=== PATIENT | female | born 1960 ===

== ENCOUNTER 2017-05-03 11:57 | Emergency (ER) | payer OTHER ==
[2017-05-03 12:02] VITALS: BMI 25.0
[2017-05-03 12:03] VITALS: RESP 18
--- NOTE | 2017-05-03 12:19 | C.PDOC ---
History Of Present Illness 56 y/o female with hx asthma c/o diffuse chest pain with fever to 102.3 yesterday, cough with copious white sputum, sore throat and body pain. pt returned yesterday to [facility] after a one month trip to [facility] at 6 am. pt reorts symptoms began enroute from [facility] to [facility], did not feel unwell prior to that. pt last took tylenol at 630 am today. denies hemoptysis, occasional sob, no abdominal pain, nausea, vomiting or diarrhea. no leg sánchez or swelling. Time Seen by Provider: 05/03/17 12:08 Chief Complaint (Nursing): Cough, Cold, Congestion History Per: Patient, Wirer ([facility] # [id number]) History/Exam Limitations: language barrier Onset/Duration Of Symptoms: Days (1) Current Symptoms Are (Timing): Worse Location Of Pain: Throat, Diffuse Myalgias Associated Symptoms: Fever, Chills, Sore Throat, Cough, Sputum, Myalgias. denies: Vomiting, Diarrhea Ear Symptoms: Bilateral: None Recent travel outside of the [place]: Yes (returned yesterday from [facility]) Additional History Per: Family Past Medical History Reviewed: Historical Data, Nursing Documentation, Vital Signs Vital Signs: Last Vital Signs Temp 98.5 F 05/03/17 14:52 Pulse 93 H 05/03/17 14:52 Resp 18 05/03/17 14:52 BP 116/72 05/03/17 14:52 Pulse Ox 96 05/03/17 15:23 - Medical History PMH: Asthma, Bronchitis, COPD Denies: Chronic Kidney Disease Family History: States: Unknown Family Hx - Social History Hx Tobacco Use: No Hx Alcohol Use: No Hx Substance Use: No - Immunization History Hx Tetanus Toxoid Vaccination: No Hx Influenza Vaccination: No Hx Pneumococcal Vaccination: No Review Of Systems Constitutional: Positive for: Fever, Chills ENT: Positive for: Nose Discharge, Throat Pain. Negative for: Ear Pain, Nose Pain, Throat Swelling Cardiovascular: Negative for: Palpitations Respiratory: Positive for: Cough, Shortness of Breath, Pleuritic Pain, Sputum Gastrointestinal: Negative for: Nausea, Vomiting, Abdominal Pain Genitourinary: Negative for: Dysuria, Frequency Skin: Negative for: Rash Neurological: Negative for: Weakness, Numbness Physical Exam - Physical Exam Appears: Non-toxic, Other (appears uncomfortable) Skin: Normal Color, Warm, Dry Head: Atraumatic, Normacephalic Ear(s): Bilateral: TM Obscured By Wax Nose: Normal Oral Mucosa: Dry Tongue: Other (dry) Lips: Other (chapped) Throat: Erythema, No Exudate Neck: Normal ROM, Supple Chest: Symmetrical, No Deformity, No Tenderness Cardiovascular: Rhythm Regular, No Murmur Respiratory: Decreased Breath Sounds, No Accessory Muscle Use, No Rales, No Rhonchi, No Wheezing Gastrointestinal/Abdominal: Soft, No Tenderness Extremity: No Pedal Edema, No Calf Tenderness, No Swelling Pulses: Left Dorsalis Pedis: Normal, Right Dorsalis Pedis: Normal Neurological/Psych: Oriented x3, Normal Speech, Normal Cognition ED Course And Treatment - Laboratory Results Result Diagrams: 05/03/17 13:13 05/03/17 12:46 O2 Sat by Pulse Oximetry: 96 Medical Decision Making Medical Decision Makin56 y/o female with asthma c/o fever, myalgias, sore throat and cough with white sputum that started on flight form [place] to [facility]. will get bc, labs, ekg. cxr, rapid strep, influenza, give iv fluids and re-eval. LUNGS: The interstitial markings are slightly increased and coarsened with a few scattered peribronchial cuffing changes ; rule out sequela of reactive/ inflammatory airway disease or viral illness. No focal consolidation. PLEURA: No significant pleural effusion identified. No pneumothorax apparent. CARDIOVASCULAR: Heart is upper limits of normal in size. Minimal calcified plaque the aortic knob. OSSEOUS STRUCTURES: Minor multilevel degenerative spondylosis of the thoracic spine. VISUALIZED UPPER ABDOMEN: Normal. OTHER FINDINGS: None. IMPRESSION: Slightly increased coarse interstitial markings; rule out sequela of reactive and or inflammatory airway disease. cxr: 233 pm pt reports myalgias and chest pain resolved. will tx with antibiotics due to asthma history; first dose of zithromax to be given now. Patient shows no signs of urinary symptoms, will not treat for UTI. Disposition Counseled Patient/Family Regarding: Studies Performed, Diagnosis, Need For Followup, Rx Given - Disposition Referrals: [facility] [Outside] [facility] at [facility] [Outside] Clinic,Med Surg [Primary Care Provider] - Disposition: HOME/ ROUTINE Disposition Time: 15:18 Condition: IMPROVED Additional Instructions: Follow up in medical clinic in 1-2 days. Take antibiotic as prescribed. Take Tylenol or Motrin for body aches and pain, fever. Stay well hydrated. Return to ER for any worsening symptoms. Prescriptions: Albuterol HFA [Ventolin HFA 90 mcg/actuation (8 g)] 2 puff IH Q6 #1 inhaler Azithromycin [Zithromax] 250 mg PO DAILY #4 tab Instructions: Upper Respiratory Infection (ED) Forms: [facility] (Mongolian), General Discharge Instructions - Clinical Impression Clinical Impression: Upper respiratory infection, Bronchitis
[2017-05-03] MEDS ORDERED: Sodium Chloride 0.9% 1,000 ML IV ONE (12:46)
[2017-05-03] MEDS ORDERED: Sodium Chloride 0.9% 1,000 ML ONE (12:52)
[2017-05-03 13:06] LABS: BASO % 0.6 % (0.0-2.0); EOS # 0.1 K/uL (0.0-0.7); EOS % 1.9 % (0.0-4.0); HEMATOCRIT 35.1 % (34.0-47.0); LYMPH # 1.6 K/uL (1.0-4.3); LYMPH % 40.6 % (20.0-40.0); MEAN CORPUSCULAR HEMOGLOBIN 18.2 pg (27.0-31.0); MEAN CORPUSCULAR HGB CONC 30.9 g/dL (33.0-37.0); MEAN PLATELET VOLUME 9.1 fL (7.2-11.7); MONO # 0.5 K/uL (0.0-0.8); MONO % 12.7 % (0.0-10.0); NRBC % 0.1 % (0.0-2.0); RED CELL DISTRIBUTION WIDTH 17.6 % (11.5-14.5); WHITE BLOOD COUNT 4.1 K/uL (4.8-10.8)
--- NOTE | 2017-05-03 13:08 | RAD ---
HISTORY: Pneumonia COMPARISON: No prior. TECHNIQUE: Chest PA and lateral FINDINGS: LUNGS: The interstitial markings are slightly increased and coarsened with a few scattered peribronchial cuffing changes ; rule out sequela of reactive/ inflammatory airway disease or viral illness. No focal consolidation. PLEURA: No significant pleural effusion identified. No pneumothorax apparent. CARDIOVASCULAR: Heart is upper limits of normal in size. Minimal calcified plaque the aortic knob. OSSEOUS STRUCTURES: Minor multilevel degenerative spondylosis of the thoracic spine. VISUALIZED UPPER ABDOMEN: Normal. OTHER FINDINGS: None. IMPRESSION: Slightly increased coarse interstitial markings; rule out sequela of reactive and or inflammatory airway disease.
[2017-05-03 13:16] LABS: CHLORIDE 102 mmol/L (98-107); POTASSIUM 4.1 mmol/L (3.6-5.2); SODIUM 143 mmol/L (132-148)
[2017-05-03 13:19] LABS: ALB/GLOB RATIO 1.3 (1.0-2.1); ALKALINE PHOSPHATASE 98 U/L (38-126); ALT/SGPT 36 U/L (9-52); AST/SGOT 37 U/L (14-36); BILIRUBIN,TOTAL 0.4 mg/dL (0.2-1.3); BLOOD UREA NITROGEN 15 mg/dL (7-17); CALCIUM 8.8 mg/dl (8.6-10.4); CARBON DIOXIDE 26 mmol/L (22-30); GFR AFRICAN-AMERICAN > 60; GLUCOSE,RANDOM 105 mg/dL (65-105); TOTAL PROTEIN 7.4 g/dL (6.3-8.3)
[2017-05-03 13:29] LABS: RBC URINE 12 /hpf (0-3); URINE BACTERIA RARE (<OCC); URINE BILIRUBIN NEGATIVE (NEGATIVE); URINE BLOOD 2+ (NEGATIVE); URINE COLOR Yellow (YELLOW); URINE GLUCOSE (UA) NORMAL (Normal); URINE KETONE NEGATIVE (NEGATIVE); URINE LEUKOCYTE ESTERASE 2+ Leu/uL (Negative); URINE PROTEIN NEGATIVE (NEGATIVE); URINE UROBILINOGEN NORMAL mg/dL (0.2-1.0); WBC URINE 5 /hpf (0-5)
[2017-05-03 14:53] VITALS: BP 116/72; PULSE 93; TEMP 98.5
[2017-05-03 15:22] VITALS: O2SAT 96
--- NOTE | 2017-05-05 18:23 | CARD ---
APPROVED REPORT EKG Measurement Heart [id number] <Conclusion> Normal sinus rhythm Cannot rule out Anterior infarct, age undetermined Abnormal ECG
== END 2017-05-03 15:29 | disposition home or self-care (01) ==
LOC: C.ER 11:57 → SUPCPDRO 11:57 → C.ER 15:29
DX: J06.9 Acute upper respiratory infection, unspecified (principal); J40 Bronchitis, not specified as acute or chronic
CPT/HCPCS: 71020; 80053; 81001; 85025; 87040; 87070; 87430; 87804; 93005; 96360; 99285; J7040

== ENCOUNTER 2017-05-09 14:39 | Emergency (ER) | payer OTHER ==
[2017-05-09 14:39] VITALS: BMI 25.0
[2017-05-09 14:55] VITALS: RESP 20
[2017-05-09] MEDS ORDERED: Belladonna-Phenobarbital PO STA (15:57)
[2017-05-09] MEDS ORDERED: Iohexol 240 (50 ml) PO STA (15:57)
[2017-05-09] MEDS ORDERED: Sodium Chloride 0.9% 1,000 ML IV ONE (15:57)
[2017-05-09] MEDS ORDERED: Belladonna-Phenobarbital ONE (16:19)
[2017-05-09] MEDS ORDERED: Sodium Chloride 0.9% 1,000 ML ONE (16:20)
[2017-05-09 16:24] LABS: BASO % 0.1 % (0.0-2.0); EOS % 12.3 % (0.0-4.0); HEMATOCRIT 33.5 % (34.0-47.0); LYMPH # 3.1 K/uL (1.0-4.3); LYMPH % 39.3 % (20.0-40.0); MEAN CORPUSCULAR HEMOGLOBIN 18.6 pg (27.0-31.0); MEAN CORPUSCULAR HGB CONC 31.5 g/dL (33.0-37.0); MONO # 0.3 K/uL (0.0-0.8); MONO % 4.3 % (0.0-10.0); NRBC % 0.2 % (0.0-2.0); RED CELL DISTRIBUTION WIDTH 17.3 % (11.5-14.5); WHITE BLOOD COUNT 7.8 K/uL (4.8-10.8)
[2017-05-09 16:32] LABS: RBC URINE 11 /hpf (0-3); URINE BACTERIA RARE (<OCC); URINE BILIRUBIN NEGATIVE (NEGATIVE); URINE BLOOD 1+ (NEGATIVE); URINE COLOR Yellow (YELLOW); URINE GLUCOSE (UA) NORMAL (Normal); URINE KETONE NEGATIVE (NEGATIVE); URINE LEUKOCYTE ESTERASE 2+ Leu/uL (Negative); URINE PROTEIN NEGATIVE (NEGATIVE); URINE UROBILINOGEN NORMAL mg/dL (0.2-1.0); WBC URINE 19 /hpf (0-5)
[2017-05-09 16:35] LABS: CHLORIDE 107 mmol/L (98-107); SODIUM 141 mmol/L (132-148)
[2017-05-09 16:36] LABS: POTASSIUM 3.9 mmol/L (3.6-5.2)
[2017-05-09 16:38] LABS: ALB/GLOB RATIO 1.2 (1.0-2.1); ALKALINE PHOSPHATASE 89 U/L (38-126); ALT/SGPT 32 U/L (9-52); AST/SGOT 26 U/L (14-36); BILIRUBIN,TOTAL 0.5 mg/dL (0.2-1.3); BLOOD UREA NITROGEN 16 mg/dL (7-17); CALCIUM 9.2 mg/dl (8.6-10.4); CARBON DIOXIDE 24 mmol/L (22-30); GFR AFRICAN-AMERICAN > 60; GLUCOSE,RANDOM 101 mg/dL (65-105); TOTAL PROTEIN 7.3 g/dL (6.3-8.3)
[2017-05-09] MEDS ORDERED: Iohexol 240 (50 ml) ONE (16:54)
--- NOTE | 2017-05-09 17:06 | RAD ---
PROCEDURE: CHEST RADIOGRAPH, 1 VIEW HISTORY: Wheezing COMPARISON: 05/03/2017. FINDINGS: LUNGS: Clear. PLEURA: No pneumothorax or pleural fluid seen. CARDIOVASCULAR: Normal. OSSEOUS STRUCTURES: No significant abnormalities. VISUALIZED UPPER ABDOMEN: Normal. OTHER FINDINGS: None. IMPRESSION: No active disease. No acute/significant interval changes.
[2017-05-09] MEDS ORDERED: Iodixanol 320 MG/ML 100 ML BOTTLE IV ONE (17:48)
[2017-05-09 17:53] VITALS: BP 115/73; PULSE 65; TEMP 97.7; O2SAT 95
--- NOTE | 2017-05-09 18:33 | C.PDOC ---
Time Seen by Provider: 05/09/17 15:14 Chief Complaint (Nursing): Abdominal Pain History Per: Patient, Family Onset/Duration Of Symptoms: Days (2), Waxing/Waning Current Symptoms Are (Timing): Still Present Severity: Moderate Location Of Pain/Discomfort: RUQ Quality Of Discomfort: "Pain" Associated Symptoms: Nausea, Vomiting, Diarrhea Alleviating Factors: None Recent travel outside of the [place]: Yes (Returned from [place] 1-2 weeks ago) Additional History Per: Prior Records Abnormal Vaginal Bleeding: No Past Medical History Reviewed: Historical Data, Nursing Documentation, Vital Signs Vital Signs: Last Vital Signs Temp 97.7 F 05/09/17 17:52 Pulse 65 05/09/17 17:52 Resp 20 05/09/17 14:50 BP 115/73 05/09/17 17:52 Pulse Ox 95 05/09/17 18:33 - Medical History PMH: Asthma, Bronchitis, COPD Surgical History: No Surg Hx Family History: States: Unknown Family Hx - Social History Hx Tobacco Use: No Hx Alcohol Use: No Hx Substance Use: No - Immunization History Hx Tetanus Toxoid Vaccination: No Hx Influenza Vaccination: Yes (06/2016) Hx Pneumococcal Vaccination: No Review Of Systems Except As Marked, All Systems Reviewed And Found Negative. Constitutional: Negative for: Fever Cardiovascular: Negative for: Chest Pain Respiratory: Negative for: Shortness of Breath Gastrointestinal: Positive for: Nausea, Vomiting, Abdominal Pain, Diarrhea. Negative for: Melena, Hematochezia, Hematemesis Genitourinary: Negative for: Dysuria Musculoskeletal: Negative for: Neck Pain Skin: Negative for: Rash Neurological: Negative for: Weakness, Numbness Physical Exam - Physical Exam Appears: Non-toxic, No Acute Distress Skin: Normal Color, Warm, Dry, No Rash Head: Atraumatic, Normacephalic Eye(s): bilateral: Normal Inspection, PERRL, EOMI Neck: Normal ROM, Supple Cardiovascular: Rhythm Regular Respiratory: No Accessory Muscle Use, Wheezing (mild scattered) Gastrointestinal/Abdominal: Soft, Tenderness (mild right sided), No Guarding, No Rebound Back: No CVA Tenderness Extremity: Normal ROM Neurological/Psych: Oriented x3, Normal Motor, Normal Sensation ED Course And Treatment - Laboratory Results Result Diagrams: 05/09/17 16:19 05/09/17 16:19 O2 Sat by Pulse Oximetry: 95 Pulse Ox Interpretation: Normal - Radiology CXR: Viewed By Me, Read By Radiologist CXR Interpretation: Yes: No Acute Disease - CT Scan/US CT abd/pelv Other Rad Studies (CT/US): Read By Radiologist, Radiology Report Reviewed CT/US Interpretation: IMPRESSION: Diffuse mild small bowel wall thickening suspicious for enteritis. The possibility of gastritis also is not totally excluded. No CT evidence of cholecystitis pancreatitis or appendicitis. Mild constipation in the right colon. Re- demonstration of 7 millimeter nodule at the anterior aspect of the right middle lobe. Progress Note: Pt feels much better and wants to go home. Reassessment Condition: Improved Progress - Interventions Interventions:: Observation, Intravenous fluid - Medications Administered Intravenous: Antiemetic, H-2 frankie - Data Reviewed Data Reviewed: Lab, Diagnostic imaging, Old records - Patient Status Patient status: Mostly improved - Continuity of Care Discussed patient case with:: Patient, Family-HIPPA compliant, ED Nurse - Patient Plan Patient Plan: Discharge, F/U with PCP, Continue present meds Disposition Counseled Patient/Family Regarding: Studies Performed, Diagnosis, Need For Followup, Rx Given - Disposition Referrals: [facility] [Outside] Disposition: HOME/ ROUTINE Disposition Time: 18:48 Condition: IMPROVED Additional Instructions: Drink plenty of fluids. Follow up in the clinic for further evaluation and treatment. Return to the ER if you develop fever, not tolerating fluids, worsening of symptoms or if you have any other concerns. Prescriptions: Dicyclomine [Bentyl] 20 mg PO QID PRN #20 tab PRN Reason: Irritable Bowel Symptoms Ondansetron [Zofran] 4 mg PO Q8H PRN #15 tab PRN Reason: Nausea/Vomiting Instructions: Enteritis (ED) Forms: [employer] (Tunisian) - Clinical Impression Clinical Impression: Enteritis, Abdominal pain, Nausea, vomiting and diarrhea
--- NOTE | 2017-05-09 18:43 | CT ---
PROCEDURE: CT Abdomen and Pelvis with contrast HISTORY: Right sided abd pain, N/V/D, travel to [place] COMPARISON: Comparison is made to the previous CT of the chest abdomen and pelvis dated 05/15/2016 TECHNIQUE: Contrast dose: 100 mL Visipaque 320. Axial and reformatted coronal and sagittal CT images of the abdomen and pelvis were obtained after IV and oral contrast administration. Radiation dose: Total exam DLP = 506.15 mGy-cm. This CT exam was performed using one or more of the following dose reduction techniques: Automated exposure control, adjustment of the mA and/or kV according to patient size, and/or use of iterative reconstruction technique. FINDINGS: LOWER THORAX: Unremarkable. LIVER: Unremarkable. No gross lesion or ductal dilatation. GALLBLADDER AND BILE DUCTS: Unremarkable. PANCREAS: Unremarkable. No gross lesion or ductal dilatation. SPLEEN: Unremarkable. ADRENALS: Unremarkable. No mass. KIDNEYS AND URETERS: Unremarkable. No hydronephrosis. No solid mass. VASCULATURE: Unremarkable. No aortic aneurysm. BOWEL: Diffuse small bowel wall thickening suspicious for enteritis. The stomach is not distended. There is also suspicious for gastric wall thickening. Mild constipation is noted. APPENDIX: Normal appendix. PERITONEUM: Unremarkable. No free fluid. No free air. LYMPH NODES: Unremarkable. No enlarged lymph nodes. BLADDER: Unremarkable. REPRODUCTIVE: Unremarkable. BONES: No acute fracture. OTHER FINDINGS: None. IMPRESSION: Diffuse mild small bowel wall thickening suspicious for enteritis. The possibility of gastritis also is not totally excluded. No CT evidence of cholecystitis pancreatitis or appendicitis. Mild constipation in the right colon. Re- demonstration of 7 millimeter nodule at the anterior aspect of the right middle lobe.
== END 2017-05-09 19:08 | disposition home or self-care (01) ==
LOC: C.ER 14:39
DX: K52.9 Noninfective gastroenteritis and colitis, unspecified (principal); R10.11 Right upper quadrant pain; R11.2 Nausea with vomiting, unspecified
CPT/HCPCS: 71010; 74177; 80053; 81001; 83690; 85025; 96361; 96374; 96375; 99284; J2405; J7040; Q9966; Q9967